=== PATIENT | female | born 1955 | race African-American/Black ===

== ENCOUNTER 2017-10-02 16:00 | Emergency (ER) | payer SELFPAY ==
[~2017-10-02] VITALS: Ht 152.4 cm; Wt 59.0 kg
[2017-10-02] MEDS ORDERED: TRAMADOL HCL 50 MG TAB PO ONE (16:30)
--- NOTE | 2017-10-02 16:51 | Diagnostic Imaging Report ---
PROCEDURE:X-RAY LEFT FOOT, COMPLETE COMPARISON:None. INDICATIONS:LEFT FOOT PAIN FINDINGS: There are no acute, displaced fractures, dislocations, lytic or blastic lesions. The bones are well-mineralized. Degenerative changes and mild subluxation of the first toe metatarsophalangeal joint, with mild hallux valgus deformity. Other joint spaces are relatively well-preserved. The soft-tissues are unremarkable. CONCLUSION: No acute abnormalities. Degenerative changes of the first metatarsophalangeal joint, with mild hallux valgus deformity. Geronimo Ledesma M.D. Dictated by: Geronimo Ledesma M.D. on 10/02/2017 at 16:51 Electronically approved by: Geronimo Ledesma M.D. on 10/02/2017 at 16:51
[2017-10-02 19:56] VITALS: BP 126/79
== END 2017-10-02 20:00 | disposition home or self-care (01) ==
LOC: ER 16:00
DX: M79.672 Pain in left foot (principal); R26.2 Difficulty in walking, not elsewhere classified; W22.09XD Striking against other stationary object, subsequent encounter
CPT/HCPCS: 99283